=== PATIENT | male | born 1940 | race Caucasian/White ===

== ENCOUNTER 2017-11-16 12:10 | Emergency (ER) | payer MEDICARE, OTHER ==
[2017-11-16] MEDS: ACETAMINOPHEN 325 MG TAB PO (14:12)
== END 2017-11-16 15:30 | disposition home or self-care (01) ==
LOC: E/R 12:10
DX: J10.1 Influenza due to other identified influenza virus with other respiratory manifestations (principal)
CPT/HCPCS: 71045; 87400; 99283-25